=== PATIENT | female | born 1955 | race Caucasian/White ===

== ENCOUNTER 2017-05-18 18:34 | Emergency (ER) | payer BC ==
[~2017-05-18] VITALS: Ht 162.6 cm; Wt 73.3 kg
[2017-05-18] MEDS ORDERED: PERCOCET 5/31 TABLET PO (20:33)
[2017-05-18] MEDS ORDERED: ZOFRAN4 MG PO (20:58)
[2017-05-18 21:49] VITALS: BP 149/91
== END 2017-05-18 22:06 | disposition home or self-care (01) ==
LOC: EME 18:34
DX: S52.532A Colles' fracture of left radius, initial encounter for closed fracture (principal); W10.9XXA Fall (on) (from) unspecified stairs and steps, initial encounter; I10 Essential (primary) hypertension; Z87.891 Personal history of nicotine dependence; Z88.5 Allergy status to narcotic agent; Z91.041 Radiographic dye allergy status
CPT/HCPCS: 73090; 73100; 73110; 99281; 99285; J2270; J2405; J3010